=== PATIENT | female | born 1980 | race Hispanic/Latino ===

== ENCOUNTER 2017-06-04 09:52 | Emergency (ER) | payer OTHER ==
[2017-06-04 10:41] VITALS: RESP 18; TEMP 98.1
[2017-06-04] MEDS ORDERED: Sodium Chloride 0.9% 1,000 ML IV STA (10:45)
--- NOTE | 2017-06-04 11:20 | ED PDOC ---
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 She notes RLQ cramping denies vaginal bleeding. Also notes ongoing R sided headache intermittent for last several weeks and epigastric burning and nausea. Denies fever, urinary symptoms, syncope or weakness. Has had gastritis in the past. with one adolescent child Past Medical History Reviewed: Historical Data, Nursing Documentation, Vital Signs Vital Signs: Last Vital Signs Temp 98.1 F 06/04/17 10:37 Pulse 83 06/04/17 15:16 Resp 18 06/04/17 15:16 BP 114/80 06/04/17 15:16 Pulse Ox 98 06/04/17 15:16 - Medical History PMH: No Chronic Diseases - Surgical History Surgical History: (16yrs ago) - Family History Family History: States: Unknown Family Hx - Living Arrangements Living Arrangements: With Family - Social History Current smoker - smoking cessation education provided: No - Home Medications Home Medications: Ambulatory Orders Medication Instructions Recorded Vit Calc,Iron,Folic 1 each PO DAILY #15 tablet 06/04/17 [ Vitamins] - Allergies Allergies/Adverse Reactions: Allergies Allergy/AdvReac Type Severity Reaction Status Date / Time No Known Allergies Allergy Verified 06/04/17 10:36 Review of Systems Constitutional: Negative for: Fever, Sweats, Weakness ENT: Negative for: Nose Discharge, Throat Pain Cardiovascular: Negative for: Chest Pain, Palpitations Respiratory: Negative for: Cough, Shortness of Breath Gastrointestinal: Positive for: Nausea, Abdominal Pain. Negative for: Vomiting , Diarrhea, Constipation Genitourinary Female: Negative for: Dysuria, Hematuria Musculoskeletal: Negative for: Neck Pain, Back Pain, Leg Pain Skin: Negative for: Rash, Lesions, Jaundice Neurological: Positive for: Headache. Negative for: Weakness, Numbness, Incoordination, Change in Speech, Confusion, Seizures, Dizziness Psych: Negative for: Depression Physical Exam - Reviewed Nursing Documentation Reviewed: Yes Vital Signs Reviewed: Yes - Physical Exam Appears: Positive for: Well, Non-toxic, No Acute Distress Head Exam: Positive for: ATRAUMATIC, NORMAL INSPECTION, NORMOCEPHALIC Skin: Positive for: Normal Color, Warm. Negative for: Rash Eye Exam: Positive for: Normal appearance, EOMI, PERRL. Negative for: Periorbital swelling, Periorbital tenderness, Conjunctival injection ENT: Positive for: Normal ENT Inspection Neck: Positive for: Normal, Painless ROM Cardiovascular/Chest: Positive for: Regular Rate, Rhythm Respiratory: Positive for: CNT, Normal Breath Sounds Gastrointestinal/Abdominal: Positive for: Bowel Sounds, Soft. Negative for: Tenderness, Guarding Back: Positive for: Normal Inspection Extremity: Positive for: Normal ROM Neurologic/Psych: Positive for: Alert, Oriented - Laboratory Results Result Diagrams: 06/04/17 11:25 06/04/17 11:25 Urine POC: Positive Urine dip results: Negative for: Leukocyte Esterase, Blood - ECG O2 Sat by Pulse Oximetry: 100 Pulse Ox Interpretation: Normal Medical Decision Making Medical Decision Making: workup for initiated r/o ectopic given abd discomfort and no care to date. tylenol initiated for headache. given ongoing >2 weeks without neurologic signs , rec outpatient followup for non-ionizing imaging given US report reviewed and explained to patient tylenol improved headache labs reviewed and explained to patient DC for urgent followup OB for full testing Disposition - Clinical Impression Clinical Impression: Headache, , Gastritis - Patient ED Disposition Is Patient to be Admitted: No Counseled Patient/Family Regarding: Studies Performed, Diagnosis, Need For Followup, Rx Given - Disposition Disposition: Routine/Home Disposition Time: 14:30 Condition: IMPROVED Additional Instructions: See OB doctor for further testing and care. Use tylenol only for headache. Prescriptions: Vit Calc,Iron,Folic [ Vitamins] 1 each PO DAILY #15 tablet Instructions: Headache, Adult, Acid Reflux (Gastroesophageal Reflux Disease) During , - The Third Month Forms: [employer] (Chinese) Print Language: SINHALA
[2017-06-04 11:36] LABS: BASO # 0.1 K/uL (0.0-0.2); BASO % 0.8 % (0.0-2.0); EOS # 0.4 K/uL (0.0-0.7); EOS % 3.8 % (0.0-4.0); HEMOGLOBIN 13.1 g/dL (12.0-16.0); LYMPH # 1.5 K/uL (1.0-4.3); LYMPH % 16.1 % (20.0-40.0); MEAN CORPUSCULAR HEMOGLOBIN 30.3 pg (27.0-31.0); MEAN CORPUSCULAR HGB CONC 34.4 g/dL (33.0-37.0); MEAN PLATELET VOLUME 7.9 fl (7.2-11.7); MONO # 0.7 K/uL (0.0-0.8); MONO % 7.3 % (0.0-10.0); NEUT # 6.7 K/uL (1.8-7.0); NRBC % 0.1 % (0.0-0.0); RBC 4.31 Mil/uL (3.80-5.20); RED CELL DISTRIBUTION WIDTH 13.4 % (11.5-14.5); WHITE BLOOD COUNT 9.3 K/uL (4.8-10.8)
[2017-06-04 11:47] LABS: ALBUMIN 3.9 g/dL (3.5-5.0); ALT/SGPT 31 U/L (9-52); AST/SGOT 24 U/L (14-36); BLOOD UREA NITROGEN 8 mg/dl (7-17); CALCIUM 9.5 mg/dL (8.4-10.2); GFR AFRICAN-AMERICAN > 60; GFR NON-AFRICAN AMERICAN > 60
[2017-06-04 11:55] LABS: SQUAMOUS EPITHIAL 6 /hpf (0-5); URINE BILIRUBIN NEGATIVE (NEGATIVE); URINE BLOOD NEGATIVE (NEGATIVE); URINE CLARITY CLOUDY (Clear); URINE COLOR YELLOW (YELLOW); URINE GLUCOSE (UA) >=500 mg/dL (Normal); URINE LEUKOCYTE ESTERASE NEG Leu/uL (Negative); URINE PROTEIN NEGATIVE (NEGATIVE); URINE UROBILINOGEN 0.2-1.0 mg/dL (0.2-1.0)
--- NOTE | 2017-06-04 12:47 | US ---
PROCEDURE: OB Pelvic Ultrasound HISTORY: pain, no care 10wks LMP: Patient uncertain. COMPARISON: None available. FINDINGS: UTERUS: Gestational sac: A single viable intrauterine gestation is identified within a gestational sac with the yolk sac identified. The abdomen made is not identified. A developing superior percent is appreciated both anteriorly as well as posteriorly in the high fundus with no definite pattern to suggest placental abruption or previa at this time. Heart rate: 160 bpm. age (Ultrasound estimated): Mean gestational sac measurement is 5.31 cm correspond to 11 weeks 1 day. Mean crown-rump length measurement is 5.05 cm correspond to 11 weeks 5 days. Both are concordant. Yolk sac measures 0.3 cm. Azul-gestational hemorrhage: None. Date of delivery (Ultrasound estimated) : 12/21/2017 Uterus measures 10.2 x 5.5 x 9.5 cm. Normal in size and appearance. No definite myometrial lesion identified. CERVIX: Measures 4.9 cm. Long and closed. No cervical abnormality seen. RIGHT OVARY: Measures 2.5 x 1.7 x 2.0 cm. No mass lesion. Normal flow. LEFT OVARY: Not identified. No suspicious left adnexal findings. FREE FLUID: None. OTHER FINDINGS: None. IMPRESSION: A single viable intrauterine gestation is identified late in the 1st trimester with average ultrasonic age of 11 weeks 5 days based on CRL mean measurement as discussed above. No suspicious findings to suggest decidual hemorrhage. Internal cervical os is closed with normal cervical length identified. cardiac activity 160 beats per minutes. Clinical correlation is advised. Ultrasonography may be useful follow-up in the 2nd trimester as clinically warranted.
[2017-06-04 15:18] VITALS: BP 114/80; PULSE 83
[2017-06-06 14:19] VITALS: O2SAT 100
== END 2017-06-04 15:18 | disposition home or self-care (01) ==
LOC: H.ER 09:52
DX: R51 Headache (principal); K29.70 Gastritis, unspecified, without bleeding; Z33.1 Pregnant state, incidental
CPT/HCPCS: 76817; 80053; 81003; 81025; 84702; 85025; 86850; 86900; 96360; 99283; J7040

== ENCOUNTER 2017-07-20 16:05 | Emergency (ER) | payer SELFPAY ==
[2017-07-20 16:27] VITALS: BP 119/76; PULSE 93; RESP 18; TEMP 98.1; O2SAT 100
--- NOTE | 2017-07-20 17:55 | ED PDOC ---
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 History/Exam Limitations: language barrier Onset/Duration Of Symptoms: Days (1), Persistent Current Symptoms Are (Timing): Still Present Alleviating Factors: None Abnormal Vaginal Bleeding: No : 2 Para: 1 Miscarriage: 0 Past Medical History Reviewed: Historical Data, Nursing Documentation, Vital Signs Vital Signs: Last Vital Signs Temp 98.1 F 07/20/17 16:23 Pulse 93 H 07/20/17 16:23 Resp 18 07/20/17 16:23 BP 119/76 07/20/17 16:23 Pulse Ox 100 07/20/17 16:23 - Surgical History Surgical History: (16yrs ago) - Family History Family History: States: Unknown Family Hx - Home Medications Home Medications: Ambulatory Orders Medication Instructions Recorded Vit Calc,Iron,Folic 1 each PO DAILY #15 tablet 06/04/17 [ Vitamins] - Allergies Allergies/Adverse Reactions: Allergies Allergy/AdvReac Type Severity Reaction Status Date / Time No Known Allergies Allergy Verified 06/04/17 10:36 Review of Systems ROS Statement: Except As Marked, All Systems Reviewed And Found Negative Genitourinary Female: Positive for: Other (pt complains of decreased movement over the last 24-36 hours) Physical Exam - Reviewed Nursing Documentation Reviewed: Yes Vital Signs Reviewed: Yes - Physical Exam Appears: Positive for: Well, Non-toxic Head Exam: Positive for: ATRAUMATIC, NORMAL INSPECTION, NORMOCEPHALIC Skin: Positive for: Normal Color, Warm, Dry Eye Exam: Positive for: Normal appearance. Negative for: Nystagmus, Periorbital swelling, Periorbital tenderness, Conjunctival injection Neck: Positive for: Normal, Painless ROM, Supple. Negative for: Decreased ROM Cardiovascular/Chest: Positive for: Regular Rate, Rhythm, Chest Non Tender. Negative for: Edema, Gallop, Murmur, Bradycardia, Tachycardia, Ectopy Respiratory: Positive for: Normal Breath Sounds. Negative for: Accessory Muscle Use, Crackles, Rales, Rhonchi, Stridor, Wheezing, Respiratory Distress Pulses-Carotid (L): 2+ Pulses-Carotid (R): 2+ Pulses-Radial (L): 2+ Pulses-Radial (R): 2+ Gastrointestinal/Abdominal: Positive for: Normal Exam, Bowel Sounds, Soft. Negative for: Tenderness, Distended, Guarding, Rebound, Asicites - ECG O2 Sat by Pulse Oximetry: 100 Medical Decision Making Medical Decision Making: r/o demise use of doppler at bedside provides a strong HR at approximately 140-150 BPM Pt and daughter each heard the tones and acknowledged Disposition - Clinical Impression Clinical Impression: Female genitourinary symptoms, - Patient ED Disposition Is Patient to be Admitted: No Doctor Will See Patient In The: Office Counseled Patient/Family Regarding: Studies Performed, Diagnosis, Need For Followup - Disposition Referrals: Olive aSnchez [Resident] - Disposition: Routine/Home Disposition Time: 17:59 Condition: GOOD Instructions: - The Third Month, - The Fourth Month Print Language: K[place]
== END 2017-07-20 18:24 | disposition home or self-care (01) ==
LOC: H.ER 16:05
DX: Z33.1 Pregnant state, incidental (principal)

== ENCOUNTER 2017-12-14 07:38 | Inpatient (IN) | payer MEDICAID, SELFPAY ==
[2017-12-14 08:16] VITALS: BMI 25.2
[2017-12-14] MEDS ORDERED: ceFAZolin IV 2 gm in Dextrose 2 GM/50 ML BAG IVPB ONE (08:16)
[2017-12-14] MEDS ORDERED: OXYTOCIN/0.9 % NS 20 UNIT/1,000 ML BAG IV ONE ×2 (08:40→08:43)
[2017-12-14] MEDS ORDERED: Oxytocin 30 UNIT 30 UNITS/500 ML BAG IV ONE (08:40)
[2017-12-14] MEDS: Lactated Ringer's 1,000 ML IV ONE ×2 (08:40→09:45)
[2017-12-14] MEDS ORDERED: Morphine 5 mg/10 ml preservative-free Inj(Duramorph) ONE (09:09)
[2017-12-14 09:17] LABS: BASO % 0.5 % (0.0-2.0); EOS # 0.2 K/uL (0.0-0.7); EOS % 2.6 % (0.0-4.0); LYMPH # 1.6 K/uL (1.0-4.3); LYMPH % 18.8 % (20.0-40.0); MEAN CELL VOLUME 92.4 fl (81.0-99.0); MEAN CORPUSCULAR HEMOGLOBIN 31.8 pg (27.0-31.0); MEAN CORPUSCULAR HGB CONC 34.4 g/dL (33.0-37.0); MONO # 0.6 K/uL (0.0-0.8); MONO % 7.2 % (0.0-10.0); NEUT # 5.9 K/uL (1.8-7.0); NEUT % 70.9 % (50.0-75.0); NRBC % 0.1 % (0.0-0.0); RBC 4.4 Mil/uL (3.80-5.20); RED CELL DISTRIBUTION WIDTH 13.9 % (11.5-14.5); WHITE BLOOD COUNT 8.3 K/uL (4.8-10.8)
[2017-12-14] MEDS ORDERED: ePHEDrine 50 mg/ml Inj ONE (10:25)
[2017-12-14] MEDS ORDERED: Lactated Ringer's 1,000 ML IV SCH ×2 (13:30→14:10)
[2017-12-14] MEDS ORDERED: Influenza Vaccine (5 YR UP)/PF 60 MCG/0.5 ML SYR IM ONE ×2 (14:11→14:30)
[2017-12-14] MEDS ORDERED: Oxycodone/Acetaminophen 5/325 mg Tab PO PRN (14:48)
[2017-12-14] MEDS ORDERED: Phenylephrine 10 mg/ml Inj ONE (14:51)
[2017-12-15 06:24] LABS: BASO % 0.5 % (0.0-2.0); EOS # 0.3 K/uL (0.0-0.7); EOS % 3.6 % (0.0-4.0); LYMPH # 1.5 K/uL (1.0-4.3); LYMPH % 16.7 % (20.0-40.0); MEAN CELL VOLUME 93.4 fl (81.0-99.0); MEAN CORPUSCULAR HEMOGLOBIN 31.6 pg (27.0-31.0); MEAN CORPUSCULAR HGB CONC 33.9 g/dL (33.0-37.0); MEAN PLATELET VOLUME 9.2 fl (7.2-11.7); MONO # 0.8 K/uL (0.0-0.8); MONO % 8.8 % (0.0-10.0); NEUT # 6.3 K/uL (1.8-7.0); NEUT % 70.4 % (50.0-75.0); RBC 3.8 Mil/uL (3.80-5.20); RED CELL DISTRIBUTION WIDTH 13.8 % (11.5-14.5); WHITE BLOOD COUNT 8.9 K/uL (4.8-10.8)
[2017-12-15] MEDS ORDERED: Multivitamin With Minerals Tab PO SCH (09:00)
[2017-12-15] MEDS: Multivitamin With Minerals Tab PO SCH (17:49)
[2017-12-16] MEDS: Multivitamin With Minerals Tab PO SCH (08:05)
[2017-12-16] MEDS ORDERED: Influenza Vaccine (5 YR UP)/PF 60 MCG/0.5 ML SYR IM ONE (09:00)
[2017-12-17] MEDS: Multivitamin With Minerals Tab PO SCH (08:18)
--- NOTE | 2017-12-17 08:18 | OP ---
PROCEDURE DATE: 12/14/2017 PREOPERATIVE DIAGNOSIS: Term at 39 weeks with previous section with unknown scar. POSTOPERATIVE DIAGNOSIS: Term at 39 weeks with previous section with unknown scar, delivered. PROCEDURE: Repeat low-transverse section. SURGEON: Nacho Garner MD [employer] ATTENDANT: Renato Jenkins MD ESTIMATED BLOOD LOSS: 800 mL. URINE OUTPUT: 600 mL, clear. INTERVENOUS FLUID: 1300 mL lactated Ringer's. ANESTHESIA: Spinal. ANESTHESIA ADMINISTERED BY: Juan Diego Fontana MD COMPLICATIONS: None. FINDINGS: A live female with Apgars of 9 and 9, weight 3110 g, delivered in vertex presentation at 10:34 a.m. CLOSURE: Capo. ADDITIONAL FINDINGS: Two small approximately 2 cm fibroids noted on the fundus, grossly normal tubes and ovaries. DESCRIPTION OF PROCEDURE: The patient was taken to the operating room and given spinal anesthesia without difficulty. She was then prepped and draped in the normal sterile fashion in the dorsal supine position with a leftward tilt. A vertical incision was made on the abdomen, first to remove her previous cuboid and vertical scar. This was then handed off the field. A Bovie was used then to extend this incision down to the underlying fascia, and the fascia was incised, extended superiorly and inferiorly without difficulty. The Isabel was then used to elevate the fascia off of the underlying rectus muscles. This was then dissected off using the Bovie. Following this, the peritoneum was identified and entered bluntly. This incision was then extended laterally, superiorly, and inferiorly using the Bovie. The bladder blade was then inserted. The vesicouterine peritoneum was identified, tented up, and entered with Metzenbaum scissors. This incision was extended laterally, and a bladder flap was created digitally. The bladder blade was then reinserted, and the lower uterine segment was incised in a transverse fashion with the scalpel. Lower uterine segment was incised in transverse fashion with the scalpel. This incision was extended cephalocaudally bluntly. The membranes were ruptured, and the infant was delivered in vertex presentation atraumatically. Nose and mouth were suctioned on the abdomen. The cord was doubly clamped and cut, and the was handed off to the awaiting tetryl nitrator operator. Cord blood was then taken. The placenta was extracted manually and intact. The uterus was exteriorized and cleared of all clots and debris. The uterine incision was then closed with 1 Vicryl in a running locked fashion and two further [id number] sutures were then placed and good hemostasis was noted. Copious irrigation was performed. Inspection of the tubes, ovaries, and uterus revealed the findings as above. The fascia, peritoneum, and rectus muscles were then reapproximated using 1 Vicryl in a running fashion from the inferior aspect and the superior aspect meeting in the midline using a 1 PDS suture. Good hemostasis and closure was noted. Following this, the subcutaneous fat layer was then closed with six interrupted sutures using a 3-0 plain suture, and the Bovie was also used to obtain good hemostasis under subcutaneous fat layer. The capo were then used for closure of the skin, and the incision was covered with a sterile dressing. The patient tolerated the procedure well. Sponge, lap, and needle counts were correct x4. Ancef 2 g was given preoperatively. The patient was taken to the recovery room in stable condition. There was no injury to the bladder, bowel, ureter, or baby. Due to the nature of this case, an ophthalmology assistant was requested. My ophthalmology assistant, Dr. Jenkins, remained for the entire procedure from the initial incision to the patient's transfer to the recovery room. His assistance was vital in performing good and providing good exposure in entry and closure of the abdominal wall with this vertical incision, delivery of the baby, and closure of the uterus. He also aided to provide good exposure to decrease blood loss. The procedure could not have been performed without his assistance. Nacho Garner MD
--- NOTE | 2017-12-17 09:54 | OBPPN ---
Datetime: 12/17/2017 06:46 PP Pain Prov: Within normal limits PP Nausea Prov: Denies PP Flatus Prov: Yes PP BM Prov: No PP Breasts Prov: Not Done PP Heart Prov: Normal PP Lungs Prov: Normal PP Abdomen/Uterus Prov: Normal PP Lochia Prov: Normal PP Vulva/Perineum Prov: Normal PP CVA Tenderness Prov: Not Done PP Extremities Prov: Normal PP C/S Incision Prov: Normal PP Progress Prov: Normal PP Impression Prov: Normal progression PP Plan Prov: Continue present management PP Progress Note Prov: S: 37 yo s/p on 12/14/2017. [facility] No overnight events. Pt reports mild abdominal pain, but well controlled with pain med s. D/c sahu, dressing removed, incision site healing well, no exudate seen, dry and intact. No nause a, advised to advance diet as tolerated. Bottle feeding without difficulty. Lochia is similar to mens es volume. No bowel movement, but passing gas per rectum. Denies fever/chills, diarrhea, nausea/vomit ing, chest pain, dyspnea, and dizziness. O: VS: stable GEN: NAD Cardio: S1S2, no murmurs Lungs: clear breath sounds b/l, no wheezing Abdomen: BS+, tenderness to palpation. Incision scar noted, well healing with no exudate seen, dry and intact. Uterus is firm and at the level of the umbilicus. EXT: No edema, calves nontender NEURO/PSYCH: AAOx3, no grossly focal deficits, preserved affect and mood. Assessment/Plan: 37 yo s/p on 12/14/2017. Pt remains afebrile, tolerating pain w ith medication, doing well on POD#2. OOB with caution SCDs for DVT prophylaxis, encouraged ambulating Percocet 5/325mg, and Motrin 600mg for pain. Encourage and ambulating CBC post op: 12.0/35.5 Tdap done Anticipated d/c to home, 12/17/2017. Case dw OB attending --- MD Delisa PGY-[address] William: I have evaluated the patient independently and I agree with the above IP PP Procedures: None Datetime: 12/16/2017 07:45 Vital Signs Provider PP: Reviewed; Within Normal Limits Vital Signs Provider Details PP: Prefers to bottle feed
--- NOTE | 2017-12-17 09:54 | OBDCSUM ---
Datetime: 12/17/2017 06:48 Discharged to, Provider: Home Follow up at, Provider: CHF Disch Instr Activity: Normal activity; May Shower Disch Instr Diet: Regular Discharge Instructions, Provider: Routine instructions given Discharge Diagnosis, Provider: Term Delivered Discharge Time: 12/17/2017 10:00 Follow up in weeks, Provider: 6 weeks Disch Referrals: None Contraception discussed, Prov: Yes Disch Activity Restrictions: No exercising; No lifting; No sexual activity; Nothing in vagina - Inte rcourse, tampons, douche Discharge Comment, Provider: DOA: 12/14/2017 EGA: 39.0 Diagnosis: Term Risk factors: none Summary of : 37 yo F L_D summary DOL: 12/14/2017 at 10:34 NB: F : 9/9 Weight: 3110g PP summary No serious complications during Post-Op. Lochia= menses, mild pain, controlled with medications Rubella immune Blood type: O+ CBC pp: 12.0/35.5 Discharge Date: 12/17/2017 Time 10:00 AM Discharge Instructions: -encourage -percocet/Ibuprofen for pain PRN -Ambulate as tolerated -f/u NB visit 3-7 days w/ duct maker and PP visit 6 weeks with OB; Wound care 4-7 days Case d/w OB attending --- Delisa MAYEN, PGY1 Discharge Diagnosis Prov Other: Contraception discussed- patient interested in Nexplanon- she will d iscuss with primary.
[2017-12-17 18:58] VITALS: BP 115/58; PULSE 60; RESP 19; TEMP 98.3; O2SAT 98
--- NOTE | 2017-12-18 10:55 | OBADHP ---
Datetime: 12/14/2017 08:28 Admit Comment, IP Provider: 37 y/o female 39.0wk GA (EMMA 12/21/17 by 1st trimester u/s) prese nts to L_D for repeat . Patient endorses movement. She denies VB, VFL, abdominal pain, n/v. She was sexually active 1 week ago. PNC: Dr. Lockwood Pmhx: denies OBhx: C-sectionx1 in 2001, hx of Chlamydia 2017, LGSIL/HPV+ s/p clopo FamHx: father has DM Socialhx: denies tobacco, etoh, recreational drug use SurgHx: 2001 HomeRx: vitamins Allergies: NKDA Gen: NAD, comfortable Heart: Normal RRR, S1/S2 present Lungs: clear to auscultation bilaterally Abd: Gravid, normal BS, soft, non-tender Extremities: no pedal edema, no calf-tenderness Neuro: patient is alert/orientedx3 Assessment and Plan: 37 y/o female 39.0wk GA presents to L_D for repeat . GBS neg, HbsAg neg, HIV neg 10/05, RPR neg 10/02, Rubella immune Quad screen positive for down syndrome, deemed invalid due to incorrect dates Admit to L_D CBC/type and screen ordered Ancef 2 gm LR 1L bolus NPO Anesthesiology consulted Kay interprter ID# [id number] [facility] Patient seen and examined by me. Agree with above H+P. --Dr. Dennison Pelvic Type - PN: Not Done Extremities - PN: Normal Abdomen - PN: Normal Back - PN: Not Done Breast - PN: Not Done Lungs - PN: Normal Heart - PN: Normal Thyroid - PN: Normal Neurologic - PN: Normal HEENT - PN: Normal General - PN: Normal Weight - Estimated: 3025 Presentation-Admit: Vertex Gestation - Est Wks by US: 39.0 IP Hx Assessment: The History has been Reviewed and is Current Vital Signs Provider: Reviewed; Within Normal Limits IP Chief Complaint: Scheduled Section NICHD Decel Fetus A IP Provider: None Genitourinary Exam: Not Done DTRs - PN: Not Done IP Adm Impression: Term, intrauterine IP Admit Plan: Admit to unit; Initiate Section protocol
--- NOTE | 2017-12-18 10:58 | OBDS ---
DELIVERY PERSONNEL Delivery Doctor: Jacobo Dennison MD Scrub Nurse: Beulah Reynolds Zumba Instructor: Xiomara Yancey RN Anesthesiologist: Silver Osorio MD MATERNAL INFORMATION Delivery Anesthesia: Spinal Medications in Delivery: Pitocin Estimated Blood Loss (ml): 800 Placenta Cultured: No Maternal Complications: None Provider Comments: See Operative report LABOR SUMMARY EDC: 12/21/2017 00:00 No. Babies in Womb: 1 Attempted: No Labor Anesthesia: None LABOR INFORMATION Reason for Induction: Not Applicable Oxytocin: N/A Group B Beta Strep: Negative Antibiotics # of Doses: n/a Antibiotics Time of Last Dose: n/a Steroids Given: None Reason Steroids Not Administered: Not Applicable MEMBRANES Membranes Rupture Method: Artificial Rupture of Membranes: 12/14/2017 12:34 Length of Rupture (hrs): -2.00 Amniotic Fluid Color: Clear Amniotic Fluid Amount: Moderate Amniotic Fluid Odor: Normal STAGES OF LABOR Stage 3 hrs: 0 Stage 3 min: 2 CSECTION DELIVERY Primary Indication: Repeat Elective CSection Urgency: Elective CSection Incidence: Repeat Labor: No Labor Elective: Elective CSection Incision: Lower Uterine Transverse; Classical BABY A INFORMATION Delivery Date/Time: 12/14/2017 10:34 Method of Delivery: Born in Route : No : N/A Forceps: N/A Vacuum Extraction: N/A Shoulder Dystocia : No SHOULDER DYSTOCIA BABY A Delivery Date/Time: 12/14/2017 10:34 PRESENTATION/POSITION BABY A Presentation: Cephalic PLACENTA INFORMATION BABY A Placenta Delivery Time : 12/14/2017 10:36 Placenta Method of Delivery: Manual Removal Placenta Status: Delivered SCORES BABY A Heart Rate 1 min: >100 bpm Resp Effort 1 min: Good Cry Reflex Irritability 1 min: Cough or Sneeze or Pulls Away Muscle Tone 1 min: Active Motion Color 1 min: Body [place], Extremities Blue Resuscitation Effort 1 min: Tactile Stimulation SCORE 1 MIN: 9 Heart Rate 5 min: >100 bpm Resp Effort 5 min: Good Cry Reflex Irritability 5 min: Cough or Sneeze or Pulls Away Muscle Tone 5 min: Active Motion Color 5 min: Body [place], Extremities Blue Resuscitation Effort 5 min: N/A SCORE 5 MIN: 9 INFANT INFORMATION BABY A Gestational Age at Delivery: 39.0 Gestational Status: Term Outcome : Liveborn Infant Condition : Stable Sex: Female IDENTIFICATION/MEDS BABY A ID Band Number: [id number] ID Band Location: Left Leg; Left Arm WEIGHT/LENGTH BABY A Infant Birthweight (gms): 3110 Weight (lb): 6 Infant Weight (oz): 14 CORD INFORMATION BABY A No. Cord Vessels: 3 Nuchal Cord : N/A Cord Blood Taken: Yes Suction: Mouth; Nose ASSESSMENT BABY A Infant Complications: None Physical Findings at Delivery: Within Normal Limits Infant Respirations: Appears Normal Pillow Filler/ALS Called : No Care By: Dr Wang/Magdalena ENCISO Transferred To: Remains with Mother
== END 2017-12-17 11:40 | disposition home or self-care (01) | DRG 371 ==
LOC: H.EROB2 07:38 → H.L&D 08:18 → H.OB/GYN 15:01
PROVIDERS: ADMIT Obstetrics & Gynecology; ATTEND Obstetrics & Gynecology
PROC: 10D00Z1 Extraction of Products of Conception, Low, Open Approach (ICD-10-PCS; principal; 2017-12-14)
PROC: 4A1HXCZ Monitoring of Products of Conception, Cardiac Rate, External Approach (ICD-10-PCS; 2017-12-14)
PROC: 3E02340 Introduction of Influenza Vaccine into Muscle, Percutaneous Approach (ICD-10-PCS; 2017-12-15)
DX: O34.211 Maternal care for low transverse scar from previous cesarean delivery (principal); O34.13 Maternal care for benign tumor of corpus uteri, third trimester; D25.9 Leiomyoma of uterus, unspecified; Z37.0 Single live birth; Z3A.39 39 weeks gestation of pregnancy; O09.523 Supervision of elderly multigravida, third trimester; Z23 Encounter for immunization; Z86.19 Personal history of other infectious and parasitic diseases